=== PATIENT | male | born 1945 | race Caucasian/White ===

== ENCOUNTER 2023-06-15 02:33 | Inpatient (IN) | payer OTHER ==
[2023-06-15] MEDS ORDERED: VANCOMYCIN 1 GRAM (PRE-DOCKED) 1,000 MG/250 ML BAG IVPB ONE (03:11)
[2023-06-15] MEDS ORDERED: methylPREDNISolone NA SUCC 125 MG/2 ML VIAL ONE (03:20)
[2023-06-15] MEDS: LACTATED RINGERS SOLUTION 1000 ML INFUS.BAG IV ONE (03:21)
[2023-06-15] MEDS: VANCOMYCIN 1,000 MG in DEXTROSE 5%-WATER - 250 ML IVPB ONE (03:21)
[2023-06-15] MEDS: methylPREDNISolone NA SUCC 125 MG/2 ML VIAL IVPUSH ONE (03:31)
[2023-06-15] MEDS: ALBUTEROL SO4 2.5/IPRATROPIUM 0.5 INH SOL 3 ML VIAL.NEB. NEB SCH ×2 (03:31→20:55)
[2023-06-15 03:36] LABS: HEMATOCRIT 19.9 % (35.4-49); MCH 29.7 pg (25.7-33.7); MCHC 32.3 g/dl (32.0-35.9); MEAN CELL VOLUME 91.9 fl (80-96); MEAN PLT VOLUME 7.9 fl (7.5-11.1); PLATELET COUNT 694 10^3/uL (134-434); RBC 2.16 M/mm3 (4.00-5.60); RDW 16.3 % (11.9-15.9)
[2023-06-15 03:40] LABS: INR 1.54 (0.83-1.09); PROTHROMBIN TIME (PATIENT) 17.8 SEC (9.7-13.0)
[2023-06-15 03:43] LABS: ACTIVATED PTT 31.5 SECONDS (25.2-36.5)
[2023-06-15 03:49] LABS: POTASSIUM 4.4 mmol/L (3.5-5.1)
[2023-06-15 03:50] LABS: HEMOGLOBIN 6.4 GM/dL (11.7-16.9); WHITE BLOOD COUNT 31.5 K/mm3 (4.0-10.0)
[2023-06-15 03:51] LABS: ALBUMIN 1.3 g/dl (3.4-5.0); CALCIUM 8.8 mg/dL (8.5-10.1)
[2023-06-15 03:52] LABS: BLOOD UREA NITROGEN 27.6 mg/dL (7-18)
[2023-06-15 03:52] LABS: EPI CELLS 23 /uL (0-25.1); HYALINE CASTS 2 /uL (0-3.1); URINE APPEARANCE CLEAR; URINE BACTERIA 6 /uL (0-1359); URINE BILIRUBIN NEGATIVE (NEGATIVE); URINE COLOR YELLOW; URINE GLUCOSE (UA) NEGATIVE (NEGATIVE); URINE KETONE NEGATIVE (NEGATIVE); URINE LEUK ESTERASE NEGATIVE (NEGATIVE); URINE NITRITE NEGATIVE (NEGATIVE); URINE PROTEIN 2+ (NEGATIVE); URINE RBC 158 /uL (0-23.9); URINE WBC 18 /uL (0-25.8)
[2023-06-15 03:55] LABS: CREATININE 0.6 mg/dL (0.55-1.3)
[2023-06-15 03:56] LABS: BILIRUBIN,TOTAL 0.3 mg/dL (0.2-1); TOT PROT 6.5 g/dl (6.4-8.2)
[2023-06-15 04:02] LABS: VENOUS BASE EXCESS 5.9 mmol/L (-2-2); VENOUS O2 SATURATION 98.7 % (70-80); VENOUS PCO2 37.1 mmHg (38-52); VENOUS PH 7.515 (7.310-7.410)
[2023-06-15 04:05] LABS: LACTIC ACID 2.2 mmol/L (0.4-2.0)
[2023-06-15] MEDS ORDERED: PIPERACILLIN/TAZOB 4.5 GM 4.5 GM/100 ML BAG IVPB ONE (04:34)
[2023-06-15 04:42] LABS: ANISOCYTOSIS 1+; MACROCYTOSIS 1+; TOXIC GRANULATION 1+
[2023-06-15] MEDS: PIPERACILLIN/TAZOB 4.5 GM 4.5 GM in DEXTROSE 5%-WATER 100 ML IVPB ONE (04:42)
[2023-06-15 04:51] LABS: PLATELET ESTIMATE INCREASED
[2023-06-15 05:55] LABS: LACTIC ACID 2.7 mmol/L (0.4-2.0)
[2023-06-15] MEDS: SODIUM CHLORIDE 0.9% 500 ML INFUS.BAG IV ONE (06:14)
[2023-06-15] MEDS ORDERED: CEFEPIME 1 GM/100 ML BAG IVPB ONE (10:24)
[2023-06-15] MEDS: CEFEPIME 1 GM in DEXTROSE 5%-WATER 100 ML IVPB ONE (10:40)
[2023-06-15] MEDS: LACTATED RINGERS SOLUTION 1,000 ML/1,000 ML INFUS.BAG IV SCH (10:40)
[2023-06-15] MEDS ORDERED: ALBUTEROL SO4 0.083% IH SOL 2.5 MG/3 ML VIAL.NEB. NEB ONE (12:07)
[2023-06-15] MEDS ORDERED: methylPREDNISolone NA SUCC 40 MG/1 ML VIAL ONE (12:08)
[2023-06-15] MEDS: methylPREDNISolone NA SUCC 40 MG/1 ML VIAL IVPUSH SCH (12:12)
[2023-06-15] MEDS: ALBUTEROL SO4 0.083% IH SOL 2.5 MG/3 ML VIAL.NEB. NEB SCH (12:19)
[2023-06-15 12:54] LABS: LACTIC ACID 2.7 mmol/L (0.4-2.0)
[2023-06-15] MEDS ORDERED: ALBUTEROL SO4 0.083% IH SOL 2.5 MG/3 ML VIAL.NEB. NEB PRN (13:22)
[2023-06-15] MEDS ORDERED: PIPERACILLIN/TAZOB 3.375 GM 3.375 GM in DEXTROSE 5%-WATER - 50 ML IVPB SCH (18:00)
[2023-06-15] MEDS: PIPERACILLIN/TAZOB 3.375 GM 3.375 GM in DEXTROSE 5%-WATER - 50 ML IVPB SCH ×2 (18:24→19:00)
[2023-06-16] MEDS: VANCOMYCIN/WATER FOR INJ (PEG) 1,000 MG/200 ML BAG IVPB ONE (05:00)
[2023-06-16] MEDS ORDERED: INSULIN (NOVOLOG) ASPART 100 UNITS/ML 10ML VIAL ONE (07:05)
[2023-06-16 07:45] LABS: HEMATOCRIT 22.7 % (35.4-49); HEMOGLOBIN 7.3 GM/dL (11.7-16.9); MCH 29.7 pg (25.7-33.7); MCHC 32.2 g/dl (32.0-35.9); MEAN CELL VOLUME 92.2 fl (80-96); MEAN PLT VOLUME 7.9 fl (7.5-11.1); PLATELET COUNT 770 10^3/uL (134-434); RBC 2.46 M/mm3 (4.00-5.60)
[2023-06-16 07:53] LABS: WHITE BLOOD COUNT 33.1 K/mm3 (4.0-10.0)
[2023-06-16 08:05] LABS: BLOOD UREA NITROGEN 27.5 mg/dL (7-18); CALCIUM 9.4 mg/dL (8.5-10.1)
[2023-06-16 08:06] LABS: MAGNESIUM 2.3 mg/dL (1.8-2.4)
[2023-06-16 08:07] LABS: ALBUMIN 1.3 g/dl (3.4-5.0)
[2023-06-16 08:08] LABS: CREATININE 0.5 mg/dL (0.55-1.3)
[2023-06-16 08:10] LABS: BILIRUBIN,TOTAL 0.3 mg/dL (0.2-1); TOT PROT 6.1 g/dl (6.4-8.2)
[2023-06-16] MEDS ORDERED: VANCOMYCIN 1,000 MG in DEXTROSE 5%-WATER - 250 ML IVPB SCH (10:15)
[2023-06-16] MEDS: METOPROLOL TARTRATE 25 MG TABLET (FP) PO SCH ×2 (11:39→22:23)
[2023-06-16] MEDS: AMINO ACIDS/PROTEIN HYDROLYS 30 ML LIQUID.PKT PO SCH (15:23)
[2023-06-16] MEDS: METOPROLOL TARTRATE 5 MG/5 ML VIAL IVPUSH ONE (15:23)
[2023-06-16 16:13] VITALS: BMI 14.0
[2023-06-16] MEDS ORDERED: METOPROLOL TARTRATE 25 MG TABLET (FP) PO SCH (22:00)
[2023-06-16] MEDS: ATORVASTATIN CA 40 MG TABLET (FP) GT SCH (22:23)
[2023-06-17 07:46] LABS: HEMATOCRIT 23.8 % (35.4-49); HEMOGLOBIN 7.7 GM/dL (11.7-16.9); MCH 29.7 pg (25.7-33.7); MCHC 32.4 g/dl (32.0-35.9); MEAN CELL VOLUME 91.6 fl (80-96); PLATELET COUNT 882 10^3/uL (134-434); RDW 16.6 % (11.9-15.9); WHITE BLOOD COUNT 22.7 K/mm3 (4.0-10.0)
[2023-06-17 08:08] LABS: POTASSIUM 4.5 mmol/L (3.5-5.1)
[2023-06-17 08:25] LABS: ALBUMIN 1.4 g/dl (3.4-5.0); CALCIUM 9.4 mg/dL (8.5-10.1)
[2023-06-17 08:26] LABS: BLOOD UREA NITROGEN 37.6 mg/dL (7-18); MAGNESIUM 2.5 mg/dL (1.8-2.4)
[2023-06-17 08:28] LABS: CREATININE 0.6 mg/dL (0.55-1.3)
[2023-06-17 08:29] LABS: PHOSPHOROUS 2.9 mg/dL (2.5-4.9)
[2023-06-17 08:30] LABS: BILIRUBIN,TOTAL 0.3 mg/dL (0.2-1); TOT PROT 6.1 g/dl (6.4-8.2)
[2023-06-17] MEDS: SCOPOLAMINE HYDROBROMIDE 1 PATCH PATCH.TD72 TD SCH (12:39)
[2023-06-17] MEDS: PANTOPRAZOLE SODIUM 40 MG VIAL IVPUSH SCH (17:17)
[2023-06-17] MEDS: methylPREDNISolone NA SUCC 40 MG/1 ML VIAL IVPUSH SCH (21:25)
[2023-06-17] MEDS: MIRTAZAPINE 15 MG TABLET (FP) PO SCH (21:25)
[2023-06-18 06:46] LABS: HEMATOCRIT 26.8 % (35.4-49); HEMOGLOBIN 8.7 GM/dL (11.7-16.9); MCH 30.3 pg (25.7-33.7); MCHC 32.3 g/dl (32.0-35.9); MEAN CELL VOLUME 93.7 fl (80-96); MEAN PLT VOLUME 7.8 fl (7.5-11.1); PLATELET COUNT 991 10^3/uL (134-434); RBC 2.86 M/mm3 (4.00-5.60); RDW 16.1 % (11.9-15.9); WHITE BLOOD COUNT 15.3 K/mm3 (4.0-10.0)
[2023-06-18 07:00] LABS: POTASSIUM 4.8 mmol/L (3.5-5.1)
[2023-06-18 07:07] LABS: CALCIUM 9.5 mg/dL (8.5-10.1)
[2023-06-18 07:08] LABS: ALBUMIN 1.6 g/dl (3.4-5.0); BLOOD UREA NITROGEN 33.2 mg/dL (7-18); MAGNESIUM 2.5 mg/dL (1.8-2.4)
[2023-06-18 07:11] LABS: CREATININE 0.6 mg/dL (0.55-1.3); PHOSPHOROUS 2.9 mg/dL (2.5-4.9)
[2023-06-18 07:12] LABS: BILIRUBIN,TOTAL 0.6 mg/dL (0.2-1); TOT PROT 6.4 g/dl (6.4-8.2)
[2023-06-18] MEDS: methylPREDNISolone NA SUCC 40 MG/1 ML VIAL IVPUSH SCH (10:30)
[2023-06-18] MEDS: METOPROLOL TARTRATE 5 MG/5 ML VIAL IVPUSH PRN (15:52)
[2023-06-18] MEDS: ENOXAPARIN NA (PORCINE) 40 MG/0.4 ML DISP.SYRIN SQ SCH (15:53)
[2023-06-18] MEDS: ACETAMINOPHEN 1000 MG/100 ML BAG IVPB SCH (17:06)
[2023-06-19 07:23] LABS: HEMOGLOBIN 9.4 GM/dL (11.7-16.9); MCH 29.8 pg (25.7-33.7); MCHC 32.3 g/dl (32.0-35.9); MEAN CELL VOLUME 92.4 fl (80-96); MEAN PLT VOLUME 7.6 fl (7.5-11.1); RBC 3.14 M/mm3 (4.00-5.60); RDW 16.4 % (11.9-15.9)
[2023-06-19 07:32] LABS: PLATELET COUNT 1200 10^3/uL (134-434)
[2023-06-19 07:37] LABS: WHITE BLOOD COUNT 34.6 K/mm3 (4.0-10.0)
[2023-06-19 07:43] LABS: POTASSIUM 4.7 mmol/L (3.5-5.1)
[2023-06-19 07:46] LABS: ALBUMIN 1.6 g/dl (3.4-5.0); BLOOD UREA NITROGEN 28.3 mg/dL (7-18)
[2023-06-19 07:51] LABS: BILIRUBIN,TOTAL 0.4 mg/dL (0.2-1); TOT PROT 6.7 g/dl (6.4-8.2)
[2023-06-19 07:54] LABS: CREATININE 0.6 mg/dL (0.55-1.3)
[2023-06-19 07:55] LABS: CALCIUM 9.4 mg/dL (8.5-10.1)
[2023-06-19] MEDS: ASCORBIC ACID 500 MG/5 ML UNIT DOSE CUP GT SCH (09:01)
[2023-06-19 09:44] LABS: ANISOCYTOSIS 0; MACROCYTOSIS 0
[2023-06-19] MEDS: methylPREDNISolone NA SUCC 40 MG/1 ML VIAL IVPUSH SCH (13:14)
[2023-06-19] MEDS: LORazepam 2 MG/ML SDV VIAL IVPUSH ONE (18:01)
[2023-06-19] MEDS: POLYETHYLENE GLYCOL (HEALTHYLAX) 3350 17 GM PACKET PO SCH (20:30)
[2023-06-19] MEDS: VANCOMYCIN/WATER FOR INJ (PEG) 1,000 MG/200 ML BAG IVPB ONE (20:30)
[2023-06-20] MEDS: MEROPENEM 1 GM in DEXTROSE 5%-WATER 100 ML IVPB SCH (01:03)
[2023-06-20 06:42] LABS: HEMATOCRIT 26.7 % (35.4-49); HEMOGLOBIN 8.7 GM/dL (11.7-16.9); MCH 30.4 pg (25.7-33.7); MCHC 32.6 g/dl (32.0-35.9); MEAN CELL VOLUME 93.4 fl (80-96); MEAN PLT VOLUME 7.8 fl (7.5-11.1); PLATELET COUNT 1088 10^3/uL (134-434); RBC 2.86 M/mm3 (4.00-5.60); RDW 15.7 % (11.9-15.9)
[2023-06-20 06:47] LABS: WHITE BLOOD COUNT 40.3 K/mm3 (4.0-10.0)
[2023-06-20 07:01] LABS: POTASSIUM 5.1 mmol/L (3.5-5.1)
[2023-06-20 07:04] LABS: ALBUMIN 1.6 g/dl (3.4-5.0); BLOOD UREA NITROGEN 31.9 mg/dL (7-18); CALCIUM 9.6 mg/dL (8.5-10.1); MAGNESIUM 2.5 mg/dL (1.8-2.4)
[2023-06-20 07:07] LABS: CREATININE 0.5 mg/dL (0.55-1.3)
[2023-06-20 07:09] LABS: BILIRUBIN,TOTAL 0.4 mg/dL (0.2-1); TOT PROT 6.5 g/dl (6.4-8.2)
[2023-06-20] MEDS: DOCUSATE NA 100 MG/10 ML UNIT-DOSE CUPS PO PRN (09:37)
[2023-06-20 09:44] LABS: ANISOCYTOSIS 0; MACROCYTOSIS 0
[2023-06-20 14:16] LABS: EPI CELLS 9 /uL (0-25.1); HYALINE CASTS 0 /uL (0-3.1); PH,URINE 5.5 (5.0-8.0); URINE APPEARANCE CLEAR; URINE BACTERIA 13 /uL (0-1359); URINE BILIRUBIN NEGATIVE (NEGATIVE); URINE COLOR YELLOW; URINE GLUCOSE (UA) TRACE (NEGATIVE); URINE KETONE NEGATIVE (NEGATIVE); URINE LEUK ESTERASE NEGATIVE (NEGATIVE); URINE NITRITE NEGATIVE (NEGATIVE); URINE PROTEIN 1+ (NEGATIVE)
[2023-06-20 15:13] LABS: URINE RBC 223 /uL (0-23.9); URINE WBC 60 /uL (0-25.8); YEAST PRESENT (NEGATIVE)
[2023-06-21 06:59] LABS: HEMATOCRIT 26.2 % (35.4-49); HEMOGLOBIN 8.4 GM/dL (11.7-16.9); MCH 29.9 pg (25.7-33.7); MEAN CELL VOLUME 93.5 fl (80-96); MEAN PLT VOLUME 7.9 fl (7.5-11.1); PLATELET COUNT 931 10^3/uL (134-434); RDW 16.1 % (11.9-15.9); WHITE BLOOD COUNT 26.6 K/mm3 (4.0-10.0)
[2023-06-21 07:15] LABS: CALCIUM 9.4 mg/dL (8.5-10.1)
[2023-06-21 07:16] LABS: ALBUMIN 1.6 g/dl (3.4-5.0); BLOOD UREA NITROGEN 33.6 mg/dL (7-18)
[2023-06-21 07:19] LABS: CREATININE 0.5 mg/dL (0.55-1.3)
[2023-06-21 07:21] LABS: TOT PROT 6.2 g/dl (6.4-8.2)
[2023-06-21 07:23] LABS: BILIRUBIN,TOTAL 0.3 mg/dL (0.2-1)
[2023-06-21] MEDS: VANCOMYCIN/WATER FOR INJ (PEG) 1,000 MG/200 ML BAG IVPB SCH (16:53)
[2023-06-21 19:03] LABS: ARTERIAL BLD GAS O2 SATURATION 98.7 % (95-98); ARTERIAL BLOOD GAS BASE EXCESS 8.6 mmol/L (-2-2); ARTERIAL BLOOD GAS PO2 119.7 mmHg (80-100); ARTERIAL BLOOD GAS pH 7.533 (7.350-7.450)
[2023-06-21 19:09] LABS: ALLENS TEST POSITIVE
[2023-06-21 19:10] LABS: VENT MODE V-AC; VENT RATE RR20
[2023-06-22 06:48] LABS: HEMATOCRIT 28.4 % (35.4-49); HEMOGLOBIN 9.2 GM/dL (11.7-16.9); MCH 29.9 pg (25.7-33.7); MCHC 32.5 g/dl (32.0-35.9); PLATELET COUNT 1094 10^3/uL (134-434); RBC 3.09 M/mm3 (4.00-5.60); RDW 16.2 % (11.9-15.9)
[2023-06-22 07:31] LABS: POTASSIUM 5.4 mmol/L (3.5-5.1)
[2023-06-22 07:37] LABS: CALCIUM 9.6 mg/dL (8.5-10.1)
[2023-06-22 07:38] LABS: ALBUMIN 1.7 g/dl (3.4-5.0); BLOOD UREA NITROGEN 31.6 mg/dL (7-18)
[2023-06-22 07:41] LABS: CREATININE 0.5 mg/dL (0.55-1.3); PHOSPHOROUS 3.2 mg/dL (2.5-4.9)
[2023-06-22 07:42] LABS: BILIRUBIN,TOTAL 0.4 mg/dL (0.2-1)
[2023-06-22 07:43] LABS: TOT PROT 6.6 g/dl (6.4-8.2)
[2023-06-22] MEDS: AMINO ACIDS/PROTEIN HYDROLYS 30 ML LIQUID.PKT PO SCH (09:17)
[2023-06-22] MEDS: DOCUSATE NA 100 MG/10 ML UNIT-DOSE CUPS PO SCH (09:17)
[2023-06-22] MEDS: SODIUM ZIRCONIUM CYCLOSILICATE (LOKELMA) 5 GM PACKET PO SCH (14:01)
[2023-06-22] MEDS: ALBUTEROL SO4 2.5/IPRATROPIUM 0.5 INH SOL 3 ML VIAL.NEB. NEB SCH (15:29)
[2023-06-22] MEDS: LACTATED RINGERS SOLUTION 1,000 ML/1,000 ML INFUS.BAG IV SCH (18:16)
[2023-06-23 07:03] LABS: HEMATOCRIT 26.7 % (35.4-49); HEMOGLOBIN 8.7 GM/dL (11.7-16.9); MCH 29.5 pg (25.7-33.7); MCHC 32.4 g/dl (32.0-35.9); MEAN CELL VOLUME 91.1 fl (80-96); MEAN PLT VOLUME 7.8 fl (7.5-11.1); PLATELET COUNT 1001 10^3/uL (134-434); RBC 2.94 M/mm3 (4.00-5.60); RDW 15.9 % (11.9-15.9); WHITE BLOOD COUNT 16.3 K/mm3 (4.0-10.0)
[2023-06-23 07:33] LABS: ALBUMIN 1.6 g/dl (3.4-5.0); CALCIUM 9.5 mg/dL (8.5-10.1)
[2023-06-23 07:36] LABS: BLOOD UREA NITROGEN 29.6 mg/dL (7-18)
[2023-06-23 07:37] LABS: BILIRUBIN,TOTAL 0.4 mg/dL (0.2-1)
[2023-06-23 07:40] LABS: CREATININE 0.4 mg/dL (0.55-1.3)
[2023-06-23 07:41] LABS: TOT PROT 6.2 g/dl (6.4-8.2)
[2023-06-23] MEDS ORDERED: ARTIFICIAL TEARS OPHTHALMIC DROPS OU PRN (13:00)
[2023-06-23] MEDS: methylPREDNISolone NA SUCC 40 MG/1 ML VIAL IVPUSH SCH (17:23)
[2023-06-24 06:37] LABS: HEMATOCRIT 28.3 % (35.4-49); HEMOGLOBIN 9.1 GM/dL (11.7-16.9); MCH 29.3 pg (25.7-33.7); MCHC 32.2 g/dl (32.0-35.9); MEAN PLT VOLUME 7.8 fl (7.5-11.1); PLATELET COUNT 1061 10^3/uL (134-434); RBC 3.11 M/mm3 (4.00-5.60); RDW 15.9 % (11.9-15.9); WHITE BLOOD COUNT 19.4 K/mm3 (4.0-10.0)
[2023-06-24 06:53] LABS: POTASSIUM 4.4 mmol/L (3.5-5.1)
[2023-06-24 06:57] LABS: ALBUMIN 1.7 g/dl (3.4-5.0); BLOOD UREA NITROGEN 26.1 mg/dL (7-18); CALCIUM 9.1 mg/dL (8.5-10.1); MAGNESIUM 2.3 mg/dL (1.8-2.4)
[2023-06-24 07:00] LABS: CREATININE 0.5 mg/dL (0.55-1.3); PHOSPHOROUS 2.2 mg/dL (2.5-4.9)
[2023-06-24 07:02] LABS: BILIRUBIN,TOTAL 0.4 mg/dL (0.2-1); TOT PROT 6.3 g/dl (6.4-8.2)
[2023-06-24] MEDS: BISACODYL 10 MG SUPP.RECT PR ONE (16:20)
[2023-06-24] MEDS: LACTATED RINGERS SOLUTION 1,000 ML/1,000 ML INFUS.BAG IV SCH (18:38)
[2023-06-24] MEDS: DAPTOMYCIN 200 MG in SODIUM CHLORIDE 50 ML IVPB SCH (21:59)
[2023-06-25 07:22] LABS: HEMATOCRIT 26.9 % (35.4-49); HEMOGLOBIN 8.8 GM/dL (11.7-16.9); MCH 29.8 pg (25.7-33.7); MCHC 32.6 g/dl (32.0-35.9); MEAN CELL VOLUME 91.4 fl (80-96); MEAN PLT VOLUME 7.9 fl (7.5-11.1); PLATELET COUNT 899 10^3/uL (134-434); RBC 2.94 M/mm3 (4.00-5.60); RDW 15.7 % (11.9-15.9); WHITE BLOOD COUNT 21.5 K/mm3 (4.0-10.0)
[2023-06-25 07:40] LABS: POTASSIUM 4.5 mmol/L (3.5-5.1)
[2023-06-25 07:44] LABS: ALBUMIN 1.6 g/dl (3.4-5.0); BLOOD UREA NITROGEN 24.4 mg/dL (7-18); CALCIUM 8.8 mg/dL (8.5-10.1); MAGNESIUM 2.1 mg/dL (1.8-2.4)
[2023-06-25 07:47] LABS: CREATININE 0.4 mg/dL (0.55-1.3); PHOSPHOROUS 2.1 mg/dL (2.5-4.9)
[2023-06-25 07:49] LABS: BILIRUBIN,TOTAL 0.5 mg/dL (0.2-1)
[2023-06-25] MEDS: methylPREDNISolone NA SUCC 40 MG/1 ML VIAL IVPUSH SCH (09:12)
[2023-06-26 07:44] LABS: HEMATOCRIT 27.7 % (35.4-49); HEMOGLOBIN 8.9 GM/dL (11.7-16.9); MCH 29.7 pg (25.7-33.7); MCHC 32.3 g/dl (32.0-35.9); MEAN PLT VOLUME 8.2 fl (7.5-11.1); PLATELET COUNT 915 10^3/uL (134-434); RBC 3.01 M/mm3 (4.00-5.60); RDW 16.1 % (11.9-15.9); WHITE BLOOD COUNT 25.4 K/mm3 (4.0-10.0)
[2023-06-26 08:02] LABS: POTASSIUM 4.5 mmol/L (3.5-5.1)
[2023-06-26 08:04] LABS: CALCIUM 9.1 mg/dL (8.5-10.1)
[2023-06-26 08:05] LABS: ALBUMIN 1.6 g/dl (3.4-5.0); BLOOD UREA NITROGEN 28.5 mg/dL (7-18)
[2023-06-26 08:08] LABS: CREATININE 0.4 mg/dL (0.55-1.3); PHOSPHOROUS 2.2 mg/dL (2.5-4.9)
[2023-06-26 08:10] LABS: BILIRUBIN,TOTAL 0.3 mg/dL (0.2-1); TOT PROT 6.2 g/dl (6.4-8.2)
[2023-06-26] MEDS: methylPREDNISolone NA SUCC 40 MG/1 ML VIAL IVPUSH SCH (09:24)
[2023-06-26 10:39] LABS: ANISOCYTOSIS 0; MACROCYTOSIS 0
[2023-06-26 10:51] LABS: NEUT % 21.7 % (42.8-82.8)
[2023-06-27 07:35] LABS: HEMATOCRIT 25.7 % (35.4-49); HEMOGLOBIN 8.4 GM/dL (11.7-16.9); MCH 29.7 pg (25.7-33.7); MCHC 32.5 g/dl (32.0-35.9); MEAN CELL VOLUME 91.5 fl (80-96); MEAN PLT VOLUME 8.5 fl (7.5-11.1); PLATELET COUNT 851 10^3/uL (134-434); RBC 2.81 M/mm3 (4.00-5.60); RDW 16.8 % (11.9-15.9)
[2023-06-27 07:55] LABS: POTASSIUM 4.9 mmol/L (3.5-5.1)
[2023-06-27 08:00] LABS: ALBUMIN 1.6 g/dl (3.4-5.0)
[2023-06-27 08:02] LABS: CALCIUM 8.8 mg/dL (8.5-10.1)
[2023-06-27 08:03] LABS: BLOOD UREA NITROGEN 25.7 mg/dL (7-18); CREATININE 0.4 mg/dL (0.55-1.3)
[2023-06-27 08:04] LABS: BILIRUBIN,TOTAL 0.3 mg/dL (0.2-1); PHOSPHOROUS 2.3 mg/dL (2.5-4.9)
[2023-06-27 08:05] LABS: TOT PROT 5.9 g/dl (6.4-8.2)
[2023-06-27 08:33] LABS: ANISOCYTOSIS 2+; MACROCYTOSIS 0
[2023-06-28 07:13] LABS: HEMATOCRIT 24.3 % (35.4-49); HEMOGLOBIN 7.8 GM/dL (11.7-16.9); MCH 29.2 pg (25.7-33.7); MCHC 32.1 g/dl (32.0-35.9); MEAN CELL VOLUME 90.9 fl (80-96); MEAN PLT VOLUME 8.6 fl (7.5-11.1); PLATELET COUNT 864 10^3/uL (134-434); RBC 2.67 M/mm3 (4.00-5.60); RDW 16.6 % (11.9-15.9); WHITE BLOOD COUNT 20.9 K/mm3 (4.0-10.0)
[2023-06-28 07:30] LABS: POTASSIUM 4.7 mmol/L (3.5-5.1)
[2023-06-28 07:40] LABS: CALCIUM 9.4 mg/dL (8.5-10.1)
[2023-06-28 07:41] LABS: ALBUMIN 1.6 g/dl (3.4-5.0); BLOOD UREA NITROGEN 22.4 mg/dL (7-18)
[2023-06-28 07:44] LABS: CREATININE 0.4 mg/dL (0.55-1.3); PHOSPHOROUS 2.5 mg/dL (2.5-4.9)
[2023-06-28 07:46] LABS: BILIRUBIN,TOTAL 0.3 mg/dL (0.2-1)
[2023-06-28 08:56] LABS: ANISOCYTOSIS 1+; MACROCYTOSIS 0
[2023-06-28] MEDS: LACTATED RINGERS SOLUTION 1,000 ML/1,000 ML INFUS.BAG IV SCH (15:44)
[2023-06-28 18:07] LABS: IG A QN SERUM. 352 mg/dL (61-437)
[2023-06-29 07:13] LABS: HEMATOCRIT 23.1 % (35.4-49); HEMOGLOBIN 7.4 GM/dL (11.7-16.9); MCH 29.8 pg (25.7-33.7); MCHC 32.1 g/dl (32.0-35.9); MEAN CELL VOLUME 92.7 fl (80-96); MEAN PLT VOLUME 8.3 fl (7.5-11.1); PLATELET COUNT 896 10^3/uL (134-434); RDW 16.6 % (11.9-15.9); WHITE BLOOD COUNT 18.3 K/mm3 (4.0-10.0)
[2023-06-29 07:47] LABS: POTASSIUM 4.9 mmol/L (3.5-5.1)
[2023-06-29 08:23] LABS: ALBUMIN 1.6 g/dl (3.4-5.0); BLOOD UREA NITROGEN 20.7 mg/dL (7-18); MAGNESIUM 2.4 mg/dL (1.8-2.4)
[2023-06-29 08:26] LABS: CREATININE 0.3 mg/dL (0.55-1.3); PHOSPHOROUS 3.2 mg/dL (2.5-4.9)
[2023-06-29 08:27] LABS: TOT PROT 5.8 g/dl (6.4-8.2)
[2023-06-29 08:29] LABS: BILIRUBIN,TOTAL 0.2 mg/dL (0.2-1)
[2023-06-29] MEDS ORDERED: methylPREDNISolone NA SUCC 40 MG/1 ML VIAL IVPUSH SCH (10:00)
[2023-06-29] MEDS: predniSONE 20 MG TABLET (UD) PO SCH (10:10)
[2023-06-29] MEDS: FAMOTIDINE 20 MG/2.5 ML ORAL LIQUID PEG SCH (10:11)
[2023-06-29 17:08] LABS: FREE KAPPA,SERUM 65.2 mg/L (3.3-19.4)
[2023-06-30] MEDS ORDERED: INSULIN (LEVEMIR) 100 UNITS/ML UNITS SQ ONE (06:52)
[2023-06-30 07:33] LABS: POTASSIUM 5.1 mmol/L (3.5-5.1)
[2023-06-30 07:48] LABS: ALBUMIN 1.7 g/dl (3.4-5.0)
[2023-06-30 07:49] LABS: BLOOD UREA NITROGEN 21.1 mg/dL (7-18); CALCIUM 8.9 mg/dL (8.5-10.1); MAGNESIUM 1.8 mg/dL (1.8-2.4)
[2023-06-30 07:52] LABS: CREATININE 0.4 mg/dL (0.55-1.3); PHOSPHOROUS 2.8 mg/dL (2.5-4.9)
[2023-06-30 07:53] LABS: BILIRUBIN,TOTAL 0.3 mg/dL (0.2-1); TOT PROT 6.3 g/dl (6.4-8.2)
[2023-06-30] MEDS ORDERED: RAPID SEQUENCE INTUBATION KIT NR ONE (07:59)
[2023-06-30 08:12] LABS: BASO % 0.6 % (0-2.0); EOS % 0.7 % (0-4.5); HEMATOCRIT 23.4 % (35.4-49); HEMOGLOBIN 7.9 GM/dL (11.7-16.9); MCHC 33.9 g/dl (32.0-35.9); MEAN CELL VOLUME 91.4 fl (80-96); MEAN PLT VOLUME 8.3 fl (7.5-11.1); MONO % 3.9 % (3.8-10.2); NEUT % 83.8 % (42.8-82.8); PLATELET COUNT 1030 10^3/uL (134-434); RBC 2.56 M/mm3 (4.00-5.60); RDW 16.9 % (11.9-15.9); WHITE BLOOD COUNT 20.1 K/mm3 (4.0-10.0)
[2023-06-30 09:51] LABS: ANISOCYTOSIS 1+; MACROCYTOSIS 0
[2023-06-30] MEDS ORDERED: POLYETHYLENE GLYCOL (HEALTHYLAX) 3350 17 GM PACKET PO PRN (18:33)
[2023-07-01 07:30] LABS: MCH 29.5 pg (25.7-33.7); MCHC 32.2 g/dl (32.0-35.9); MEAN CELL VOLUME 91.7 fl (80-96); PLATELET COUNT 1026 10^3/uL (134-434); RBC 2.72 M/mm3 (4.00-5.60); WHITE BLOOD COUNT 27.8 K/mm3 (4.0-10.0)
[2023-07-01 07:57] LABS: POTASSIUM 4.7 mmol/L (3.5-5.1)
[2023-07-01 08:02] LABS: ALBUMIN 1.8 g/dl (3.4-5.0); BLOOD UREA NITROGEN 26.4 mg/dL (7-18); CALCIUM 8.8 mg/dL (8.5-10.1)
[2023-07-01 08:04] LABS: PHOSPHOROUS 3.4 mg/dL (2.5-4.9)
[2023-07-01 08:05] LABS: CREATININE 0.4 mg/dL (0.55-1.3)
[2023-07-01 08:06] LABS: BILIRUBIN,TOTAL 0.5 mg/dL (0.2-1); TOT PROT 6.3 g/dl (6.4-8.2)
[2023-07-01] MEDS: LACTATED RINGERS SOLUTION 1,000 ML/1,000 ML INFUS.BAG IV SCH (09:42)
[2023-07-01] MEDS: ALBUTEROL SO4 2.5/IPRATROPIUM 0.5 INH SOL 3 ML VIAL.NEB. NEB SCH (15:50)
[2023-07-01] MEDS ORDERED: ARTIFICIAL TEARS OPHTHALMIC DROPS OU PRN (15:51)
[2023-07-01] MEDS: PIPERACILLIN/TAZOB 3.375 GM 3.375 GM in DEXTROSE 5%-WATER - 50 ML IVPB SCH (17:49)
[2023-07-01] MEDS: MIRTAZAPINE 15 MG TABLET (FP) PO SCH (22:03)
[2023-07-01] MEDS: METOPROLOL TARTRATE 25 MG TABLET (FP) PO SCH (22:03)
[2023-07-02] MEDS: ACETAMINOPHEN 1000 MG/100 ML BAG IVPB PRN (00:20)
[2023-07-02] MEDS: METOPROLOL TARTRATE 5 MG/5 ML VIAL IVPUSH PRN (01:53)
[2023-07-02] MEDS: AMINO ACIDS/PROTEIN HYDROLYS 30 ML LIQUID.PKT PO SCH (09:11)
[2023-07-02] MEDS: ENOXAPARIN NA (PORCINE) 40 MG/0.4 ML DISP.SYRIN SQ SCH (09:11)
[2023-07-02] MEDS: predniSONE 10 MG TABLET (UD) PO SCH (09:12)
[2023-07-02] MEDS: ASCORBIC ACID 500 MG/5 ML UNIT DOSE CUP GT SCH (09:12)
[2023-07-02 09:22] LABS: POTASSIUM 4.5 mmol/L (3.5-5.1)
[2023-07-02 09:24] LABS: ALBUMIN 1.6 g/dl (3.4-5.0); BLOOD UREA NITROGEN 29.7 mg/dL (7-18); CALCIUM 8.7 mg/dL (8.5-10.1); MAGNESIUM 2.3 mg/dL (1.8-2.4)
[2023-07-02 09:27] LABS: CREATININE 0.4 mg/dL (0.55-1.3); PHOSPHOROUS 2.9 mg/dL (2.5-4.9)
[2023-07-02 09:29] LABS: BILIRUBIN,TOTAL 0.5 mg/dL (0.2-1); TOT PROT 5.9 g/dl (6.4-8.2)
[2023-07-02 09:49] LABS: HEMATOCRIT 24.5 % (35.4-49); HEMOGLOBIN 7.7 GM/dL (11.7-16.9); MCH 29.2 pg (25.7-33.7); MCHC 31.4 g/dl (32.0-35.9); MEAN CELL VOLUME 93.1 fl (80-96); MEAN PLT VOLUME 8.2 fl (7.5-11.1); PLATELET COUNT 863 10^3/uL (134-434); RBC 2.63 M/mm3 (4.00-5.60); RDW 17.1 % (11.9-15.9); WHITE BLOOD COUNT 25.2 K/mm3 (4.0-10.0)
[2023-07-02] MEDS: FAMOTIDINE 40 MG/5 ML ORAL SUSPENSION PEG SCH (11:50)
[2023-07-02] MEDS: SCOPOLAMINE HYDROBROMIDE 1 PATCH PATCH.TD72 TD SCH (11:51)
[2023-07-02] MEDS: DEXTROSE 5%-NORMAL SALINE 1,000 ML IV SCH (14:51)
[2023-07-02] MEDS: methylPREDNISolone NA SUCC 40 MG/1 ML VIAL IVPUSH SCH (14:52)
[2023-07-03] MEDS ORDERED: ARTIFICIAL TEARS OPHTHALMIC DROPS OU PRN (05:19)
[2023-07-03] MEDS ORDERED: METOPROLOL TARTRATE 5 MG/5 ML VIAL IVPUSH PRN (05:19)
[2023-07-03 08:10] LABS: POTASSIUM 4.6 mmol/L (3.5-5.1)
[2023-07-03 08:14] LABS: CALCIUM 8.8 mg/dL (8.5-10.1)
[2023-07-03 08:15] LABS: ALBUMIN 1.5 g/dl (3.4-5.0); BLOOD UREA NITROGEN 24.4 mg/dL (7-18); MAGNESIUM 2.4 mg/dL (1.8-2.4)
[2023-07-03 08:18] LABS: CREATININE 0.4 mg/dL (0.55-1.3); PHOSPHOROUS 2.6 mg/dL (2.5-4.9)
[2023-07-03 08:19] LABS: BILIRUBIN,TOTAL 0.3 mg/dL (0.2-1); TOT PROT 5.9 g/dl (6.4-8.2)
[2023-07-03] MEDS: ALBUTEROL SO4 2.5/IPRATROPIUM 0.5 INH SOL 3 ML VIAL.NEB. NEB SCH (08:45)
[2023-07-03 08:50] LABS: MCHC 32.1 g/dl (32.0-35.9); MEAN CELL VOLUME 93.5 fl (80-96); PLATELET COUNT 702 10^3/uL (134-434); RBC 2.24 M/mm3 (4.00-5.60); RDW 17.3 % (11.9-15.9); WHITE BLOOD COUNT 15.2 K/mm3 (4.0-10.0)
[2023-07-03 09:07] LABS: HEMOGLOBIN 6.7 GM/dL (11.7-16.9)
[2023-07-03] MEDS: ASCORBIC ACID 500 MG/5 ML UNIT DOSE CUP GT SCH (09:21)
[2023-07-03] MEDS: AMINO ACIDS/PROTEIN HYDROLYS 30 ML LIQUID.PKT PO SCH (09:21)
[2023-07-03] MEDS: METOPROLOL TARTRATE 25 MG TABLET (FP) PO SCH (09:21)
[2023-07-03] MEDS: FAMOTIDINE 20 MG/2.5 ML ORAL LIQUID PEG SCH (09:22)
[2023-07-03] MEDS: ENOXAPARIN NA (PORCINE) 40 MG/0.4 ML DISP.SYRIN SQ SCH (09:22)
[2023-07-03] MEDS: PIPERACILLIN/TAZOB 3.375 GM 3.375 GM in DEXTROSE 5%-WATER - 50 ML IVPB SCH (09:22)
[2023-07-03] MEDS: MIRTAZAPINE 15 MG TABLET (FP) PO SCH (21:51)
[2023-07-04 07:39] LABS: HEMATOCRIT 27.8 % (35.4-49); HEMOGLOBIN 9.1 GM/dL (11.7-16.9); MCH 29.7 pg (25.7-33.7); MCHC 32.7 g/dl (32.0-35.9); PLATELET COUNT 793 10^3/uL (134-434); RBC 3.05 M/mm3 (4.00-5.60); RDW 16.7 % (11.9-15.9)
[2023-07-04 07:57] LABS: POTASSIUM 4.6 mmol/L (3.5-5.1)
[2023-07-04 08:01] LABS: CALCIUM 9.3 mg/dL (8.5-10.1)
[2023-07-04 08:02] LABS: ALBUMIN 1.8 g/dl (3.4-5.0); BLOOD UREA NITROGEN 31.2 mg/dL (7-18); MAGNESIUM 2.2 mg/dL (1.8-2.4)
[2023-07-04 08:05] LABS: CREATININE 0.6 mg/dL (0.55-1.3); PHOSPHOROUS 3.4 mg/dL (2.5-4.9)
[2023-07-04 08:06] LABS: BILIRUBIN,TOTAL 0.4 mg/dL (0.2-1); TOT PROT 6.2 g/dl (6.4-8.2)
[2023-07-04 10:14] LABS: ANISOCYTOSIS 0; MACROCYTOSIS 0
[2023-07-04] MEDS: ACETAMINOPHEN 1000 MG/100 ML BAG IVPB PRN (12:43)
[2023-07-04] MEDS: methylPREDNISolone NA SUCC 40 MG/1 ML VIAL IVPUSH SCH (21:28)
[2023-07-05 07:23] LABS: HEMATOCRIT 30.1 % (35.4-49); MEAN CELL VOLUME 90.9 fl (80-96); MEAN PLT VOLUME 7.9 fl (7.5-11.1); PLATELET COUNT 892 10^3/uL (134-434); RBC 3.31 M/mm3 (4.00-5.60); RDW 16.2 % (11.9-15.9); WHITE BLOOD COUNT 15.3 K/mm3 (4.0-10.0)
[2023-07-05 07:42] LABS: POTASSIUM 5.3 mmol/L (3.5-5.1)
[2023-07-05 07:48] LABS: CALCIUM 9.7 mg/dL (8.5-10.1)
[2023-07-05 07:49] LABS: ALBUMIN 1.9 g/dl (3.4-5.0); MAGNESIUM 2.3 mg/dL (1.8-2.4)
[2023-07-05 07:51] LABS: PHOSPHOROUS 3.9 mg/dL (2.5-4.9)
[2023-07-05 07:52] LABS: CREATININE 0.5 mg/dL (0.55-1.3); TOT PROT 6.8 g/dl (6.4-8.2)
[2023-07-05 07:53] LABS: BILIRUBIN,TOTAL 0.5 mg/dL (0.2-1)
[2023-07-05] MEDS: POLYETHYLENE GLYCOL (HEALTHYLAX) 3350 17 GM PACKET PO PRN (08:59)
[2023-07-05] MEDS: SCOPOLAMINE HYDROBROMIDE 1 PATCH PATCH.TD72 TD SCH (13:07)
[2023-07-05] MEDS: SODIUM ZIRCONIUM CYCLOSILICATE (LOKELMA) 5 GM PACKET GT ONE (17:30)
[2023-07-06 12:59] LABS: HEMATOCRIT 30.5 % (35.4-49); HEMOGLOBIN 10.2 GM/dL (11.7-16.9); MCH 30.5 pg (25.7-33.7); MCHC 33.6 g/dl (32.0-35.9); MEAN CELL VOLUME 90.8 fl (80-96); MEAN PLT VOLUME 7.9 fl (7.5-11.1); PLATELET COUNT 919 10^3/uL (134-434); RBC 3.36 M/mm3 (4.00-5.60); RDW 16.2 % (11.9-15.9); WHITE BLOOD COUNT 16.2 K/mm3 (4.0-10.0)
[2023-07-06 13:50] LABS: ALBUMIN 1.9 g/dl (3.4-5.0); BLOOD UREA NITROGEN 28.8 mg/dL (7-18)
[2023-07-06 13:53] LABS: CREATININE 0.6 mg/dL (0.55-1.3); PHOSPHOROUS 4.1 mg/dL (2.5-4.9)
[2023-07-06 13:54] LABS: TOT PROT 6.4 g/dl (6.4-8.2)
[2023-07-06 13:55] LABS: BILIRUBIN,TOTAL 0.4 mg/dL (0.2-1)
[2023-07-06 13:58] LABS: CALCIUM 9.3 mg/dL (8.5-10.1); MAGNESIUM 2.3 mg/dL (1.8-2.4)
[2023-07-06] MEDS: QUEtiapine FUMARATE 25 MG TABLET GT SCH ×2 (15:25→21:22)
[2023-07-07 06:39] LABS: HEMATOCRIT 29.1 % (35.4-49); HEMOGLOBIN 9.7 GM/dL (11.7-16.9); MCH 30.3 pg (25.7-33.7); MCHC 33.3 g/dl (32.0-35.9); MEAN CELL VOLUME 91.1 fl (80-96); MEAN PLT VOLUME 7.8 fl (7.5-11.1); PLATELET COUNT 837 10^3/uL (134-434); RDW 16.1 % (11.9-15.9); WHITE BLOOD COUNT 14.2 K/mm3 (4.0-10.0)
[2023-07-07 07:24] LABS: POTASSIUM 4.6 mmol/L (3.5-5.1)
[2023-07-07 07:30] LABS: BLOOD UREA NITROGEN 26.9 mg/dL (7-18); CALCIUM 9.2 mg/dL (8.5-10.1)
[2023-07-07 07:32] LABS: ALBUMIN 1.9 g/dl (3.4-5.0)
[2023-07-07 07:34] LABS: CREATININE 0.5 mg/dL (0.55-1.3); PHOSPHOROUS 2.8 mg/dL (2.5-4.9)
[2023-07-07 07:36] LABS: BILIRUBIN,TOTAL 0.5 mg/dL (0.2-1); TOT PROT 6.1 g/dl (6.4-8.2)
[2023-07-07] MEDS: methylPREDNISolone NA SUCC 40 MG/1 ML VIAL IVPUSH SCH (09:13)
[2023-07-07] MEDS: QUEtiapine FUMARATE 25 MG TABLET PO ONE (12:04)
[2023-07-07] MEDS: QUEtiapine FUMARATE 25 MG TABLET GT SCH (22:00)
[2023-07-08] MEDS: ALPRAZolam 1 MG TABLET GT PRN (01:56)
[2023-07-08 07:07] LABS: HEMATOCRIT 33.2 % (35.4-49); HEMOGLOBIN 10.9 GM/dL (11.7-16.9); MCH 30.2 pg (25.7-33.7); MCHC 32.9 g/dl (32.0-35.9); MEAN CELL VOLUME 91.9 fl (80-96); MEAN PLT VOLUME 7.8 fl (7.5-11.1); PLATELET COUNT 731 10^3/uL (134-434); RBC 3.61 M/mm3 (4.00-5.60); RDW 16.5 % (11.9-15.9); WHITE BLOOD COUNT 11.3 K/mm3 (4.0-10.0)
[2023-07-08 07:33] LABS: POTASSIUM 4.5 mmol/L (3.5-5.1)
[2023-07-08 07:35] LABS: BLOOD UREA NITROGEN 24.1 mg/dL (7-18); CALCIUM 9.5 mg/dL (8.5-10.1); MAGNESIUM 2.3 mg/dL (1.8-2.4)
[2023-07-08 07:38] LABS: CREATININE 0.5 mg/dL (0.55-1.3); PHOSPHOROUS 2.9 mg/dL (2.5-4.9)
[2023-07-08 07:39] LABS: BILIRUBIN,TOTAL 0.5 mg/dL (0.2-1); TOT PROT 6.9 g/dl (6.4-8.2)
[2023-07-09 07:24] LABS: BASO % 0.3 % (0-2.0); EOS % 0.7 % (0-4.5); HEMATOCRIT 31.4 % (35.4-49); LYMPH % 12.9 % (8-40); MCH 29.5 pg (25.7-33.7); MEAN PLT VOLUME 8.2 fl (7.5-11.1); MONO % 4.3 % (3.8-10.2); NEUT % 81.8 % (42.8-82.8); PLATELET COUNT 802 10^3/uL (134-434); RBC 3.41 M/mm3 (4.00-5.60); RDW 16.4 % (11.9-15.9); WHITE BLOOD COUNT 13.6 K/mm3 (4.0-10.0)
[2023-07-09 07:39] LABS: POTASSIUM 5.1 mmol/L (3.5-5.1)
[2023-07-09 07:44] LABS: ALBUMIN 1.9 g/dl (3.4-5.0); CALCIUM 9.5 mg/dL (8.5-10.1)
[2023-07-09 07:49] LABS: BILIRUBIN,TOTAL 0.4 mg/dL (0.2-1); TOT PROT 6.4 g/dl (6.4-8.2)
[2023-07-09 07:58] LABS: BLOOD UREA NITROGEN 24.9 mg/dL (7-18); CREATININE 0.4 mg/dL (0.55-1.3)
[2023-07-10] MEDS: METOPROLOL TARTRATE 25 MG TABLET (FP) PO SCH (10:34)
[2023-07-11 05:24] VITALS: RESP 22
[2023-07-11 06:16] VITALS: PULSE 110; TEMP 98.3
[2023-07-11 07:42] LABS: BASO % 0.3 % (0-2.0); EOS % 0.4 % (0-4.5); HEMATOCRIT 29.8 % (35.4-49); LYMPH % 13.5 % (8-40); MCH 30.4 pg (25.7-33.7); MCHC 33.4 g/dl (32.0-35.9); MEAN PLT VOLUME 8.6 fl (7.5-11.1); MONO % 8.3 % (3.8-10.2); NEUT % 77.5 % (42.8-82.8); PLATELET COUNT 666 10^3/uL (134-434); RBC 3.28 M/mm3 (4.00-5.60); RDW 16.3 % (11.9-15.9); WHITE BLOOD COUNT 11.8 K/mm3 (4.0-10.0)
[2023-07-11] MEDS ORDERED: METOPROLOL TARTRATE 25 MG TABLET (FP) PO SCH (07:45)
[2023-07-11] MEDS ORDERED: POLYETHYLENE GLYCOL (HEALTHYLAX) 3350 17 GM PACKET GT PRN (07:46)
[2023-07-11] MEDS ORDERED: MIRTAZAPINE 15 MG TABLET (FP) GT SCH (07:46)
[2023-07-11 07:53] LABS: CALCIUM 9.3 mg/dL (8.5-10.1)
[2023-07-11 07:54] LABS: BLOOD UREA NITROGEN 32.6 mg/dL (7-18)
[2023-07-11 07:57] LABS: CREATININE 0.5 mg/dL (0.55-1.3)
[2023-07-11] MEDS: AMINO ACIDS/PROTEIN HYDROLYS 30 ML LIQUID.PKT GT SCH (09:24)
[2023-07-11] MEDS: METOPROLOL TARTRATE 25 MG TABLET (FP) GT SCH (09:25)
[2023-07-11] MEDS: predniSONE 20 MG TABLET (UD) GT SCH (09:25)
[2023-07-11 10:48] VITALS: BP 94/70
== END 2023-07-11 12:20 | DRG 870 ==
LOC: JER 02:33 → JERBED 09:29 → J2W 16:01 → J5S 07-01 15:37 → J2W 07-03 05:24
PROVIDERS: ADMIT Internal Medicine; ATTEND Internal Medicine
PROC: 5A1955Z Respiratory Ventilation, Greater than 96 Consecutive Hours (ICD-10-PCS; principal; 2023-06-15)
PROC: 30233N1 Transfusion of Nonautologous Red Blood Cells into Peripheral Vein, Percutaneous Approach (ICD-10-PCS; 2023-06-15)
DX: A41.89 Other specified sepsis (principal); E43 Unspecified severe protein-calorie malnutrition; I60.8 Other nontraumatic subarachnoid hemorrhage; J96.21 Acute and chronic respiratory failure with hypoxia; R64 Cachexia; Z68.1 Body mass index [BMI] 19.9 or less, adult; J98.11 Atelectasis; Z43.1 Encounter for attention to gastrostomy; J44.0 Chronic obstructive pulmonary disease with (acute) lower respiratory infection; J95.851 Ventilator associated pneumonia; E87.20 Acidosis, unspecified; E87.1 Hypo-osmolality and hyponatremia; J44.1 Chronic obstructive pulmonary disease with (acute) exacerbation; I24.89 Other forms of acute ischemic heart disease; R62.7 Adult failure to thrive; D75.839 Thrombocytosis, unspecified; E78.5 Hyperlipidemia, unspecified; R65.20 Severe sepsis without septic shock; D63.8 Anemia in other chronic diseases classified elsewhere; R45.1 Restlessness and agitation; K59.00 Constipation, unspecified; K21.9 Gastro-esophageal reflux disease without esophagitis; I95.9 Hypotension, unspecified; H10.11 Acute atopic conjunctivitis, right eye; L89.150 Pressure ulcer of sacral region, unstageable; Z93.0 Tracheostomy status; S05.11XA Contusion of eyeball and orbital tissues, right eye, initial encounter; X58.XXXA Exposure to other specified factors, initial encounter; Y93.9 Activity, unspecified; Y92.9 Unspecified place or not applicable; Y99.9 Unspecified external cause status
CPT/HCPCS: 0241U-QW; 36415; 36430; 36600; 70450-TC; 70490-TC; 71045-TC-FY; 71275-TC; 80048; 80053; 81003; 82550; 82607; 82728; 82747; 82784; 82803; 82962; 83540; 83550; 83605; 83735; 83883; 84100; 84155; 84165; 84484; 85014; 85025; 85027; 85610; 85730; 86850; 86900; 86901; 86922; 87040; 87070; 87077; 87086; 87186; 87205; 87324; 87449; 87635; 87899; 93005; 93010; 93306-TC; 94002; 94640; 99291; E0186; G0480; J0131; J0878; P9058; Q9967

== ENCOUNTER 2023-08-10 11:21 | Inpatient (IN) | payer OTHER ==
[2023-08-10 11:44] VITALS: BMI 13.2
[2023-08-10 12:41] LABS: POTASSIUM 5.3 mmol/L (3.5-5.1)
[2023-08-10 12:43] LABS: ALBUMIN 1.7 g/dl (3.4-5.0); BLOOD UREA NITROGEN 23.8 mg/dL (7-18); CALCIUM 9.3 mg/dL (8.5-10.1)
[2023-08-10 12:46] LABS: CREATININE 0.5 mg/dL (0.55-1.3)
[2023-08-10 12:48] LABS: BILIRUBIN,TOTAL 0.2 mg/dL (0.2-1); TOT PROT 7.3 g/dl (6.4-8.2)
[2023-08-10] MEDS: SODIUM CHLORIDE 1,000 ML IV STA (13:22)
[2023-08-10 13:28] LABS: BASO % 0.8 % (0-2.0); EOS % 0.9 % (0-4.5); HEMATOCRIT 20.8 % (35.4-49); LYMPH % 10.9 % (8-40); MCH 28.2 pg (25.7-33.7); MCHC 31.6 g/dl (32.0-35.9); MEAN CELL VOLUME 89.3 fl (80-96); MEAN PLT VOLUME 7.7 fl (7.5-11.1); MONO % 6.5 % (3.8-10.2); NEUT % 80.9 % (42.8-82.8); PLATELET COUNT 669 10^3/uL (134-434); RBC 2.33 M/mm3 (4.00-5.60); RDW 17.2 % (11.9-15.9); WHITE BLOOD COUNT 12.5 K/mm3 (4.0-10.0)
[2023-08-10 13:32] LABS: HEMOGLOBIN 6.6 GM/dL (11.7-16.9)
[2023-08-10 14:28] LABS: INR 1.31 (0.83-1.09); PROTHROMBIN TIME (PATIENT) 15.1 SEC (9.7-13.0)
[2023-08-10] MEDS ORDERED: ERYTHROMYCIN 0.5% OPHTHALMIC OINTMENT 3.5 GM TUBE ONE (15:10)
[2023-08-10] MEDS: ERYTHROMYCIN 0.5% OPHTHALMIC OINTMENT 3.5 GM TUBE OD ONE (15:11)
[2023-08-10] MEDS ORDERED: PANTOPRAZOLE SODIUM 40 MG/100 ML BAG IVPB ONE (15:43)
[2023-08-10] MEDS ORDERED: PIPERACILLIN/TAZOB 3.375 GM 3.375 GM/50 ML BAG IVPB ONE (15:43)
[2023-08-10] MEDS: PIPERACILLIN/TAZOB 3.375 GM 3.375 GM in DEXTROSE 5%-WATER - 50 ML IVPB ONE (15:49)
[2023-08-10] MEDS: PANTOPRAZOLE SODIUM 40 MG VIAL IVPUSH SCH (15:49)
[2023-08-10 20:15] LABS: HEMATOCRIT 22.4 % (35.4-49); MCH 28.2 pg (25.7-33.7); MCHC 31.1 g/dl (32.0-35.9); MEAN CELL VOLUME 90.6 fl (80-96); MEAN PLT VOLUME 7.9 fl (7.5-11.1); PLATELET COUNT 798 10^3/uL (134-434); RBC 2.47 M/mm3 (4.00-5.60); RDW 16.6 % (11.9-15.9); WHITE BLOOD COUNT 14.1 K/mm3 (4.0-10.0)
[2023-08-10 20:36] LABS: POTASSIUM 4.6 mmol/L (3.5-5.1)
[2023-08-10 20:38] LABS: CALCIUM 8.9 mg/dL (8.5-10.1)
[2023-08-10 20:39] LABS: ALBUMIN 1.6 g/dl (3.4-5.0); BLOOD UREA NITROGEN 22.1 mg/dL (7-18)
[2023-08-10 20:42] LABS: CREATININE 0.5 mg/dL (0.55-1.3)
[2023-08-10 20:43] LABS: BILIRUBIN,TOTAL 0.4 mg/dL (0.2-1)
[2023-08-10] MEDS ORDERED: METOPROLOL TARTRATE 25 MG TABLET (FP) ONE (22:46)
[2023-08-10] MEDS ORDERED: PANTOPRAZOLE SODIUM 40 MG VIAL ONE (22:46)
[2023-08-10] MEDS: SODIUM CHLORIDE 1,000 ML IV SCH (22:51)
[2023-08-10] MEDS: METOPROLOL TARTRATE 25 MG TABLET (FP) GT SCH (23:43)
[2023-08-11] MEDS ORDERED: POLYETHYLENE GLYCOL (HEALTHYLAX) 3350 17 GM PACKET GT PRN (07:42)
[2023-08-11] MEDS: ALBUTEROL SO4 2.5/IPRATROPIUM 0.5 INH SOL 3 ML VIAL.NEB. NEB SCH (08:40)
[2023-08-11 08:50] LABS: BASO % 1.1 % (0-2.0); EOS % 1.2 % (0-4.5); HEMATOCRIT 20.1 % (35.4-49); LYMPH % 6.8 % (8-40); MCH 28.6 pg (25.7-33.7); MCHC 31.5 g/dl (32.0-35.9); MEAN CELL VOLUME 90.6 fl (80-96); MEAN PLT VOLUME 8.1 fl (7.5-11.1); NEUT % 85.9 % (42.8-82.8); PLATELET COUNT 703 10^3/uL (134-434); RBC 2.22 M/mm3 (4.00-5.60); RDW 17.1 % (11.9-15.9); WHITE BLOOD COUNT 14.5 K/mm3 (4.0-10.0)
[2023-08-11 08:51] LABS: POTASSIUM 4.3 mmol/L (3.5-5.1)
[2023-08-11 08:55] LABS: ALBUMIN 1.5 g/dl (3.4-5.0); CALCIUM 9.3 mg/dL (8.5-10.1); MAGNESIUM 2.2 mg/dL (1.8-2.4)
[2023-08-11 08:56] LABS: BLOOD UREA NITROGEN 23.7 mg/dL (7-18)
[2023-08-11 08:58] LABS: CREATININE 0.5 mg/dL (0.55-1.3); PHOSPHOROUS 3.9 mg/dL (2.5-4.9)
[2023-08-11 09:00] LABS: BILIRUBIN,TOTAL 0.5 mg/dL (0.2-1); TOT PROT 6.5 g/dl (6.4-8.2)
[2023-08-11 09:01] LABS: HEMOGLOBIN 6.3 GM/dL (11.7-16.9)
[2023-08-11] MEDS ORDERED: METOPROLOL TARTRATE 25 MG TABLET (FP) ONE (09:38)
[2023-08-11] MEDS ORDERED: ALBUTEROL SO4 2.5/IPRATROPIUM 0.5 INH SOL 3 ML VIAL.NEB. NEB ONE (09:38)
[2023-08-11] MEDS ORDERED: PANTOPRAZOLE SODIUM 40 MG VIAL ONE (09:40)
[2023-08-11] MEDS: MOXIFLOXACIN HCL 0.5% OPHTHALMIC 3 ML BOTTLE OD SCH (10:00)
[2023-08-11] MEDS: PIPERACILLIN/TAZOB 3.375 GM 3.375 GM in DEXTROSE 5%-WATER - 50 ML IVPB SCH (10:30)
[2023-08-11] MEDS ORDERED: PIPERACILLIN/TAZOB 3.375 GM 3.375 GM/50 ML BAG IVPB ONE (10:42)
[2023-08-11] MEDS: QUEtiapine FUMARATE 25 MG TABLET GT SCH (10:44)
[2023-08-11] MEDS: MIRTAZAPINE 15 MG TABLET (FP) GT SCH (22:43)
[2023-08-12] MEDS: PANTOPRAZOLE SODIUM 40 MG VIAL IVPUSH SCH (09:50)
[2023-08-12 11:00] LABS: BASO % 1.2 % (0-2.0); EOS % 1.8 % (0-4.5); HEMATOCRIT 21.5 % (35.4-49); LYMPH % 9.3 % (8-40); MCH 28.9 pg (25.7-33.7); MCHC 32.4 g/dl (32.0-35.9); MEAN CELL VOLUME 89.2 fl (80-96); MEAN PLT VOLUME 8.2 fl (7.5-11.1); MONO % 5.7 % (3.8-10.2); PLATELET COUNT 618 10^3/uL (134-434); RBC 2.41 M/mm3 (4.00-5.60); RDW 16.5 % (11.9-15.9); WHITE BLOOD COUNT 9.1 K/mm3 (4.0-10.0)
[2023-08-12 11:26] LABS: POTASSIUM 3.9 mmol/L (3.5-5.1)
[2023-08-12 11:28] LABS: ALBUMIN 1.4 g/dl (3.4-5.0); CALCIUM 8.5 mg/dL (8.5-10.1)
[2023-08-12 11:29] LABS: MAGNESIUM 2.2 mg/dL (1.8-2.4)
[2023-08-12 11:32] LABS: CREATININE 0.5 mg/dL (0.55-1.3); PHOSPHOROUS 3.1 mg/dL (2.5-4.9)
[2023-08-12 11:33] LABS: BILIRUBIN,TOTAL 0.3 mg/dL (0.2-1); TOT PROT 6.4 g/dl (6.4-8.2)
[2023-08-12] MEDS ORDERED: ALBUTEROL SO4 2.5/IPRATROPIUM 0.5 INH SOL 3 ML VIAL.NEB. NEB PRN (16:26)
[2023-08-12] MEDS: SODIUM CHLORIDE 500 ML IV STA (16:51)
[2023-08-12] MEDS ORDERED: LEVALBUTEROL HCL 0.63 MG/3 ML VIAL.NEB. IH PRN (17:56)
[2023-08-12] MEDS ORDERED: IPRATROPIUM BR 0.02% 0.5 MG/2.5 ML VIAL.NEB. NEB PRN (17:56)
[2023-08-12] MEDS: ACETAMINOPHEN 650 MG/20.3 ML ORAL SOLUTION (CUPS) GT PRN (20:53)
[2023-08-12 21:02] LABS: HEMATOCRIT 28.2 % (35.4-49); HEMOGLOBIN 9.3 GM/dL (11.7-16.9); MCH 29.7 pg (25.7-33.7); MCHC 32.9 g/dl (32.0-35.9); MEAN CELL VOLUME 90.3 fl (80-96); MEAN PLT VOLUME 7.9 fl (7.5-11.1); PLATELET COUNT 656 10^3/uL (134-434); RBC 3.12 M/mm3 (4.00-5.60); RDW 16.1 % (11.9-15.9); WHITE BLOOD COUNT 13.9 K/mm3 (4.0-10.0)
[2023-08-12] MEDS: methylPREDNISolone NA SUCC 40 MG/1 ML VIAL IVPUSH SCH (21:11)
[2023-08-13 06:37] LABS: HEMOGLOBIN 8.7 GM/dL (11.7-16.9); MCH 30.5 pg (25.7-33.7); MCHC 33.5 g/dl (32.0-35.9); MEAN CELL VOLUME 91.3 fl (80-96); MEAN PLT VOLUME 8.3 fl (7.5-11.1); PLATELET COUNT 580 10^3/uL (134-434); RBC 2.85 M/mm3 (4.00-5.60); RDW 16.2 % (11.9-15.9); WHITE BLOOD COUNT 13.4 K/mm3 (4.0-10.0)
[2023-08-13 07:11] LABS: POTASSIUM 4.7 mmol/L (3.5-5.1)
[2023-08-13 07:17] LABS: BLOOD UREA NITROGEN 18.3 mg/dL (7-18); CALCIUM 8.4 mg/dL (8.5-10.1)
[2023-08-13 07:21] LABS: CREATININE 0.5 mg/dL (0.55-1.3)
[2023-08-13] MEDS: SODIUM HYPOCHLORITE 0.5% 473 ML- BULK BOTTLE TP SCH (09:10)
[2023-08-13] MEDS: VANCOMYCIN/WATER FOR INJ (PEG) 750 MG/150 ML BAG IVPB SCH (15:02)
[2023-08-13 15:45] LABS: EPI CELLS 32 /uL (0-25.1); HYALINE CASTS 8 /uL (0-3.1); PH,URINE 5.5 (5.0-8.0); URINE APPEARANCE Error; URINE BACTERIA 47 /uL (0-1359); URINE BILIRUBIN NEGATIVE (NEGATIVE); URINE COLOR YELLOW; URINE GLUCOSE (UA) NEGATIVE (NEGATIVE); URINE KETONE TRACE (NEGATIVE); URINE LEUK ESTERASE NEGATIVE (NEGATIVE); URINE NITRITE NEGATIVE (NEGATIVE); URINE PROTEIN 1+ (NEGATIVE); URINE WBC 13 /uL (0-25.8)
[2023-08-13 16:21] LABS: URINE RBC 119 /uL (0-23.9)
[2023-08-13 16:24] LABS: URINE CRYSTALS PRESENT /hpf
[2023-08-14 07:37] LABS: HEMATOCRIT 27.1 % (35.4-49); HEMOGLOBIN 8.7 GM/dL (11.7-16.9); MCH 29.8 pg (25.7-33.7); MCHC 32.2 g/dl (32.0-35.9); MEAN CELL VOLUME 92.4 fl (80-96); MEAN PLT VOLUME 8.3 fl (7.5-11.1); PLATELET COUNT 627 10^3/uL (134-434); RBC 2.93 M/mm3 (4.00-5.60); RDW 16.2 % (11.9-15.9); WHITE BLOOD COUNT 14.6 K/mm3 (4.0-10.0)
[2023-08-14 08:13] LABS: POTASSIUM 5.1 mmol/L (3.5-5.1)
[2023-08-14 08:21] LABS: ALBUMIN 1.5 g/dl (3.4-5.0); CALCIUM 8.5 mg/dL (8.5-10.1)
[2023-08-14 08:22] LABS: BLOOD UREA NITROGEN 20.7 mg/dL (7-18)
[2023-08-14 08:25] LABS: CREATININE 0.5 mg/dL (0.55-1.3)
[2023-08-14 08:26] LABS: BILIRUBIN,TOTAL 0.2 mg/dL (0.2-1); TOT PROT 6.2 g/dl (6.4-8.2)
[2023-08-14] MEDS ORDERED: METOPROLOL TARTRATE 25 MG TABLET (FP) GT SCH (09:50)
[2023-08-14 10:53] LABS: ANISOCYTOSIS 0; MACROCYTOSIS 0
[2023-08-14] MEDS: methylPREDNISolone NA SUCC 40 MG/1 ML VIAL IVPUSH SCH (21:33)
[2023-08-14] MEDS: METOPROLOL TARTRATE 25 MG TABLET (FP) GT SCH (21:33)
[2023-08-15 07:34] LABS: BASO % 0.2 % (0-2.0); HEMATOCRIT 27.2 % (35.4-49); HEMOGLOBIN 8.7 GM/dL (11.7-16.9); LYMPH % 6.6 % (8-40); MCH 29.3 pg (25.7-33.7); MEAN CELL VOLUME 91.6 fl (80-96); MEAN PLT VOLUME 8.3 fl (7.5-11.1); MONO % 5.1 % (3.8-10.2); NEUT % 88.1 % (42.8-82.8); PLATELET COUNT 660 10^3/uL (134-434); RBC 2.97 M/mm3 (4.00-5.60); RDW 16.2 % (11.9-15.9); WHITE BLOOD COUNT 11.6 K/mm3 (4.0-10.0)
[2023-08-15 08:01] LABS: POTASSIUM 4.6 mmol/L (3.5-5.1)
[2023-08-15 08:03] LABS: ALBUMIN 1.4 g/dl (3.4-5.0); BLOOD UREA NITROGEN 22.1 mg/dL (7-18); CALCIUM 8.5 mg/dL (8.5-10.1)
[2023-08-15 08:06] LABS: CREATININE 0.3 mg/dL (0.55-1.3)
[2023-08-15 08:08] LABS: BILIRUBIN,TOTAL 0.3 mg/dL (0.2-1); TOT PROT 5.8 g/dl (6.4-8.2)
[2023-08-15] MEDS ORDERED: POLYETHYLENE GLYCOL (HEALTHYLAX) 3350 17 GM PACKET GT PRN (19:34)
[2023-08-15] MEDS: ACETAMINOPHEN 650 MG/20.3 ML ORAL SOLUTION (CUPS) GT PRN (21:19)
[2023-08-15] MEDS: MIRTAZAPINE 15 MG TABLET (FP) GT SCH (21:20)
[2023-08-15] MEDS: QUEtiapine FUMARATE 25 MG TABLET GT SCH (21:20)
[2023-08-15] MEDS: MOXIFLOXACIN HCL 0.5% OPHTHALMIC 3 ML BOTTLE OD SCH (21:21)
[2023-08-16] MEDS: PIPERACILLIN/TAZOB 3.375 GM 3.375 GM in DEXTROSE 5%-WATER - 50 ML IVPB SCH (01:05)
[2023-08-16 07:37] LABS: BASO % 0.3 % (0-2.0); HEMATOCRIT 31.4 % (35.4-49); HEMOGLOBIN 10.1 GM/dL (11.7-16.9); LYMPH % 6.8 % (8-40); MCH 29.2 pg (25.7-33.7); MCHC 32.1 g/dl (32.0-35.9); MEAN PLT VOLUME 8.2 fl (7.5-11.1); MONO % 3.4 % (3.8-10.2); NEUT % 89.5 % (42.8-82.8); PLATELET COUNT 840 10^3/uL (134-434); RBC 3.45 M/mm3 (4.00-5.60); RDW 16.7 % (11.9-15.9); WHITE BLOOD COUNT 11.1 K/mm3 (4.0-10.0)
[2023-08-16 07:56] LABS: POTASSIUM 4.8 mmol/L (3.5-5.1)
[2023-08-16 08:08] LABS: ALBUMIN 1.6 g/dl (3.4-5.0)
[2023-08-16 08:09] LABS: BLOOD UREA NITROGEN 18.9 mg/dL (7-18)
[2023-08-16 08:12] LABS: CREATININE 0.4 mg/dL (0.55-1.3)
[2023-08-16 08:13] LABS: BILIRUBIN,TOTAL 0.4 mg/dL (0.2-1); TOT PROT 6.3 g/dl (6.4-8.2)
[2023-08-16] MEDS: PANTOPRAZOLE SODIUM 40 MG VIAL IVPUSH SCH (09:35)
[2023-08-16] MEDS: ASCORBIC ACID 500 MG/5 ML UNIT DOSE CUP GT SCH (09:35)
[2023-08-16] MEDS: SODIUM HYPOCHLORITE 0.5% 473 ML- BULK BOTTLE TP SCH (09:36)
[2023-08-16 17:35] LABS: MAGNESIUM 2.2 mg/dL (1.8-2.4)
[2023-08-16 17:39] LABS: PHOSPHOROUS 2.8 mg/dL (2.5-4.9)
[2023-08-17 07:10] LABS: HEMATOCRIT 32.3 % (35.4-49); HEMOGLOBIN 10.3 GM/dL (11.7-16.9); MCHC 31.9 g/dl (32.0-35.9); MEAN CELL VOLUME 90.9 fl (80-96); MEAN PLT VOLUME 8.1 fl (7.5-11.1); PLATELET COUNT 851 10^3/uL (134-434); RBC 3.55 M/mm3 (4.00-5.60); RDW 16.7 % (11.9-15.9); WHITE BLOOD COUNT 14.1 K/mm3 (4.0-10.0)
[2023-08-17 07:31] LABS: POTASSIUM 4.4 mmol/L (3.5-5.1)
[2023-08-17 07:36] LABS: CALCIUM 8.7 mg/dL (8.5-10.1)
[2023-08-17 07:38] LABS: ALBUMIN 1.7 g/dl (3.4-5.0); BLOOD UREA NITROGEN 18.8 mg/dL (7-18)
[2023-08-17 07:41] LABS: CREATININE 0.4 mg/dL (0.55-1.3)
[2023-08-17 07:43] LABS: BILIRUBIN,TOTAL 1.4 mg/dL (0.2-1); TOT PROT 6.1 g/dl (6.4-8.2)
[2023-08-17] MEDS: methylPREDNISolone NA SUCC 40 MG/1 ML VIAL IVPUSH SCH (10:08)
[2023-08-17 12:11] VITALS: BP 147/68; PULSE 93; RESP 23; TEMP 98.5
== END 2023-08-17 12:45 | DRG 870 ==
LOC: JER 11:21 → JERBED 16:28 → J5S 08-11 18:43 → J2W 08-12 20:19
PROVIDERS: ADMIT Internal Medicine; ATTEND Internal Medicine
PROC: 5A1955Z Respiratory Ventilation, Greater than 96 Consecutive Hours (ICD-10-PCS; principal; 2023-08-10)
PROC: 30233N1 Transfusion of Nonautologous Red Blood Cells into Peripheral Vein, Percutaneous Approach (ICD-10-PCS; 2023-08-11)
DX: A41.89 Other specified sepsis (principal); L89.153 Pressure ulcer of sacral region, stage 3; L89.313 Pressure ulcer of right buttock, stage 3; E43 Unspecified severe protein-calorie malnutrition; J18.9 Pneumonia, unspecified organism; E87.1 Hypo-osmolality and hyponatremia; L03.213 Periorbital cellulitis; J96.11 Chronic respiratory failure with hypoxia; Z68.1 Body mass index [BMI] 19.9 or less, adult; D62 Acute posthemorrhagic anemia; E87.5 Hyperkalemia; H01.00A Unspecified blepharitis right eye, upper and lower eyelids; N31.9 Neuromuscular dysfunction of bladder, unspecified; D50.9 Iron deficiency anemia, unspecified; R00.0 Tachycardia, unspecified; R33.9 Retention of urine, unspecified; D72.829 Elevated white blood cell count, unspecified; J44.9 Chronic obstructive pulmonary disease, unspecified; K21.9 Gastro-esophageal reflux disease without esophagitis; Z93.1 Gastrostomy status; Z93.0 Tracheostomy status; Z86.73 Personal history of transient ischemic attack (TIA), and cerebral infarction without residual deficits
CPT/HCPCS: 0241U-QW; 36415; 36430; 70481-TC; 71045-TC-FY; 80048; 80053; 81003; 82272; 83735; 84100; 85025; 85027; 85610; 86850; 86900; 86901; 86922; 87040; 87070; 87086; 87186; 87205; 87635; 93005; 93010; 94002; 94640; 99285-25; P9058; Q9967

== ENCOUNTER 2023-08-22 12:41 | Inpatient (IN) | payer OTHER ==
[2023-08-22 14:28] LABS: HEMATOCRIT 29.1 % (35.4-49); HEMOGLOBIN 9.1 GM/dL (11.7-16.9); MCH 28.8 pg (25.7-33.7); MCHC 31.2 g/dl (32.0-35.9); MEAN CELL VOLUME 92.3 fl (80-96); MEAN PLT VOLUME 9.4 fl (7.5-11.1); PLATELET COUNT 607 10^3/uL (134-434); RBC 3.16 M/mm3 (4.00-5.60); RDW 17.9 % (11.9-15.9); WHITE BLOOD COUNT 19.4 K/mm3 (4.0-10.0)
[2023-08-22 14:36] LABS: INR 1.36 (0.83-1.09); PROTHROMBIN TIME (PATIENT) 15.7 SEC (9.7-13.0)
[2023-08-22 14:37] LABS: VENOUS BASE EXCESS 8.6 mmol/L (-2-2); VENOUS O2 SATURATION 95.2 % (70-80); VENOUS PCO2 45.7 mmHg (38-52); VENOUS PH 7.476 (7.310-7.410)
[2023-08-22] MEDS: ALBUTEROL SO4 2.5/IPRATROPIUM 0.5 INH SOL 3 ML VIAL.NEB. NEB SCH (15:00)
[2023-08-22 15:02] LABS: ALBUMIN 1.6 g/dl (3.4-5.0); CALCIUM 9.2 mg/dL (8.5-10.1); POTASSIUM 4.9 mmol/L (3.5-5.1)
[2023-08-22 15:03] LABS: BLOOD UREA NITROGEN 30.6 mg/dL (7-18)
[2023-08-22 15:06] LABS: CREATININE 0.4 mg/dL (0.55-1.3)
[2023-08-22 15:07] LABS: BILIRUBIN,TOTAL 0.2 mg/dL (0.2-1); TOT PROT 6.2 g/dl (6.4-8.2)
[2023-08-22 15:08] LABS: EPI CELLS >36 /uL (0-25.1); HYALINE CASTS 12 /uL (0-3.1); URINE APPEARANCE TURBID; URINE BACTERIA 54 /uL (0-1359); URINE BILIRUBIN NEGATIVE (NEGATIVE); URINE COLOR DK YELLOW; URINE GLUCOSE (UA) NEGATIVE (NEGATIVE); URINE KETONE NEGATIVE (NEGATIVE); URINE LEUK ESTERASE 1+ (NEGATIVE); URINE NITRITE NEGATIVE (NEGATIVE); URINE PROTEIN 2+ (NEGATIVE); URINE RBC 5905 /uL (0-23.9); URINE WBC 224 /uL (0-25.8)
[2023-08-22 15:49] LABS: ANISOCYTOSIS 0; MACROCYTOSIS 0
[2023-08-22] MEDS ORDERED: DEXAMETHASONE SOD PHOSPHATE 10 MG/1 ML VIAL ONE (16:13)
[2023-08-22] MEDS ORDERED: ALBUTEROL SO4 2.5/IPRATROPIUM 0.5 INH SOL 3 ML VIAL.NEB. NEB ONE (16:13)
[2023-08-22] MEDS: DEXAMETHASONE SOD PHOSPHATE 10 MG/1 ML VIAL IVPUSH ONE (16:27)
[2023-08-22] MEDS ORDERED: PIPERACILLIN/TAZOB 4.5 GM 4.5 GM/100 ML BAG IVPB ONE (17:23)
[2023-08-22] MEDS: SODIUM CHLORIDE 0.9% 500 ML INFUS.BAG IV ONE (17:30)
[2023-08-22] MEDS: PIPERACILLIN/TAZOB 4.5 GM 4.5 GM in DEXTROSE 5%-WATER 100 ML IVPB ONE (17:30)
[2023-08-22] MEDS ORDERED: VANCOMYCIN 1 GRAM (PRE-DOCKED) 1,000 MG/250 ML BAG IVPB ONE (17:45)
[2023-08-22] MEDS: VANCOMYCIN 1,000 MG in DEXTROSE 5%-WATER - 250 ML IVPB ONE (17:50)
[2023-08-22 22:44] VITALS: BMI 13.8
[2023-08-22] MEDS: LACTATED RINGERS SOLUTION 1,000 ML/1,000 ML INFUS.BAG IV STA (23:00)
[2023-08-23] MEDS: LACTATED RINGERS SOLUTION 1,000 ML/1,000 ML INFUS.BAG IV SCH (05:15)
[2023-08-23] MEDS: LACTATED RINGERS SOLUTION 1,000 ML/1,000 ML INFUS.BAG IV ONE (05:36)
[2023-08-23] MEDS: methylPREDNISolone NA SUCC 40 MG/1 ML VIAL IVPUSH SCH ×2 (05:38→17:15)
[2023-08-23] MEDS: MEROPENEM 1 GM in DEXTROSE 5%-WATER 100 ML IVPB SCH ×2 (05:39→17:15)
[2023-08-23] MEDS: MOXIFLOXACIN HCL 0.5% OPHTHALMIC 3 ML BOTTLE OD SCH (06:27)
[2023-08-23 06:42] LABS: HEMATOCRIT 24.1 % (35.4-49); HEMOGLOBIN 7.5 GM/dL (11.7-16.9); MCH 29.3 pg (25.7-33.7); MCHC 31.2 g/dl (32.0-35.9); PLATELET COUNT 522 10^3/uL (134-434); RBC 2.56 M/mm3 (4.00-5.60); WHITE BLOOD COUNT 18.7 K/mm3 (4.0-10.0)
[2023-08-23 07:02] LABS: POTASSIUM 5.1 mmol/L (3.5-5.1)
[2023-08-23 07:11] LABS: CALCIUM 8.6 mg/dL (8.5-10.1)
[2023-08-23 07:13] LABS: BLOOD UREA NITROGEN 22.1 mg/dL (7-18); MAGNESIUM 1.8 mg/dL (1.8-2.4)
[2023-08-23 07:15] LABS: CREATININE 0.4 mg/dL (0.55-1.3); PHOSPHOROUS 4.6 mg/dL (2.5-4.9)
[2023-08-23 07:16] LABS: BILIRUBIN,TOTAL 0.4 mg/dL (0.2-1); TOT PROT 4.9 g/dl (6.4-8.2)
[2023-08-23 07:28] LABS: ALBUMIN 1.2 g/dl (3.4-5.0)
[2023-08-23] MEDS: ALBUTEROL SO4 2.5/IPRATROPIUM 0.5 INH SOL 3 ML VIAL.NEB. NEB SCH (08:10)
[2023-08-23] MEDS ORDERED: AMOX TR/POTASSIUM CLAVULANATE 600 MG/5 ML GT SCH (10:00)
[2023-08-23] MEDS: ENOXAPARIN NA (PORCINE) 40 MG/0.4 ML DISP.SYRIN SQ SCH (10:17)
[2023-08-23] MEDS: ACETAMINOPHEN 650 MG/20.3 ML ORAL SOLUTION (CUPS) GT PRN (10:37)
[2023-08-23] MEDS: SODIUM HYPOCHLORITE 0.5% 473 ML- BULK BOTTLE TP SCH (11:44)
[2023-08-23] MEDS ORDERED: POLYETHYLENE GLYCOL (HEALTHYLAX) 3350 17 GM PACKET GT PRN (15:10)
[2023-08-23] MEDS: QUEtiapine FUMARATE 25 MG TABLET GT SCH (21:33)
[2023-08-23] MEDS: MIRTAZAPINE 15 MG TABLET (FP) GT SCH (21:33)
[2023-08-23] MEDS: METOPROLOL TARTRATE 25 MG TABLET (FP) GT SCH (21:33)
[2023-08-24] MEDS ORDERED: MEROPENEM 1 GM in DEXTROSE 5%-WATER 100 ML IVPB SCH (02:00)
[2023-08-24 07:10] LABS: HEMATOCRIT 27.3 % (35.4-49); HEMOGLOBIN 8.5 GM/dL (11.7-16.9); MCH 28.7 pg (25.7-33.7); MEAN CELL VOLUME 92.5 fl (80-96); MEAN PLT VOLUME 8.6 fl (7.5-11.1); PLATELET COUNT 662 10^3/uL (134-434); RBC 2.95 M/mm3 (4.00-5.60); RDW 17.8 % (11.9-15.9); WHITE BLOOD COUNT 15.7 K/mm3 (4.0-10.0)
[2023-08-24 07:30] LABS: ALBUMIN 1.5 g/dl (3.4-5.0); CALCIUM 9.5 mg/dL (8.5-10.1); MAGNESIUM 2.2 mg/dL (1.8-2.4)
[2023-08-24 07:31] LABS: BLOOD UREA NITROGEN 21.4 mg/dL (7-18)
[2023-08-24 07:33] LABS: CREATININE 0.5 mg/dL (0.55-1.3); PHOSPHOROUS 3.6 mg/dL (2.5-4.9)
[2023-08-24 07:35] LABS: BILIRUBIN,TOTAL 0.3 mg/dL (0.2-1); TOT PROT 5.7 g/dl (6.4-8.2)
[2023-08-24 07:43] LABS: POTASSIUM 4.4 mmol/L (3.5-5.1)
[2023-08-24] MEDS: SODIUM HYPOCHLORITE 0.25%- 473 ML BULK BOTTLE TP SCH (09:13)
[2023-08-24 10:18] LABS: ANISOCYTOSIS 0; MACROCYTOSIS 0
[2023-08-25 06:41] LABS: HEMATOCRIT 24.1 % (35.4-49); HEMOGLOBIN 7.9 GM/dL (11.7-16.9); MCH 29.8 pg (25.7-33.7); MCHC 32.8 g/dl (32.0-35.9); MEAN PLT VOLUME 8.1 fl (7.5-11.1); PLATELET COUNT 687 10^3/uL (134-434); RBC 2.65 M/mm3 (4.00-5.60); RDW 17.8 % (11.9-15.9); WHITE BLOOD COUNT 14.4 K/mm3 (4.0-10.0)
[2023-08-25 06:57] LABS: POTASSIUM 4.3 mmol/L (3.5-5.1)
[2023-08-25 07:02] LABS: ALBUMIN 1.5 g/dl (3.4-5.0); CALCIUM 8.9 mg/dL (8.5-10.1)
[2023-08-25 07:03] LABS: BLOOD UREA NITROGEN 23.5 mg/dL (7-18); MAGNESIUM 2.1 mg/dL (1.8-2.4)
[2023-08-25 07:05] LABS: CREATININE 0.4 mg/dL (0.55-1.3)
[2023-08-25 07:06] LABS: PHOSPHOROUS 2.3 mg/dL (2.5-4.9)
[2023-08-25 07:07] LABS: BILIRUBIN,TOTAL 0.3 mg/dL (0.2-1); TOT PROT 5.5 g/dl (6.4-8.2)
[2023-08-25 09:41] LABS: ANISOCYTOSIS 0; MACROCYTOSIS 0
[2023-08-26 07:00] LABS: BASO % 0.2 % (0-2.0); EOS % 0.4 % (0-4.5); HEMATOCRIT 26.8 % (35.4-49); HEMOGLOBIN 8.5 GM/dL (11.7-16.9); LYMPH % 10.2 % (8-40); MCH 28.8 pg (25.7-33.7); MCHC 31.8 g/dl (32.0-35.9); MEAN CELL VOLUME 90.7 fl (80-96); MONO % 5.3 % (3.8-10.2); NEUT % 83.9 % (42.8-82.8); PLATELET COUNT 797 10^3/uL (134-434); RBC 2.96 M/mm3 (4.00-5.60); RDW 17.5 % (11.9-15.9); WHITE BLOOD COUNT 18.6 K/mm3 (4.0-10.0)
[2023-08-26 07:06] LABS: POTASSIUM 4.3 mmol/L (3.5-5.1)
[2023-08-26 07:19] LABS: ALBUMIN 1.7 g/dl (3.4-5.0); BLOOD UREA NITROGEN 18.1 mg/dL (7-18); CALCIUM 8.8 mg/dL (8.5-10.1)
[2023-08-26 07:22] LABS: CREATININE 0.3 mg/dL (0.55-1.3); PHOSPHOROUS 1.5 mg/dL (2.5-4.9)
[2023-08-26 07:23] LABS: BILIRUBIN,TOTAL 0.3 mg/dL (0.2-1); TOT PROT 5.8 g/dl (6.4-8.2)
[2023-08-26] MEDS: NAPH,MB-DB/K PH,MBDB POWDER PACKET GT SCH (08:27)
[2023-08-26] MEDS: methylPREDNISolone NA SUCC 40 MG/1 ML VIAL IVPUSH SCH (09:11)
[2023-08-26] MEDS: GENTAMICIN IVPB SCH (17:35)
[2023-08-26] MEDS: DEXTROSE 5% IVPB SCH (17:35)
[2023-08-26] MEDS: WATER IVPB SCH (17:35)
[2023-08-27 06:44] LABS: HEMATOCRIT 27.1 % (35.4-49); HEMOGLOBIN 8.8 GM/dL (11.7-16.9); MCH 29.3 pg (25.7-33.7); MCHC 32.4 g/dl (32.0-35.9); MEAN CELL VOLUME 90.5 fl (80-96); MEAN PLT VOLUME 7.8 fl (7.5-11.1); PLATELET COUNT 830 10^3/uL (134-434); RBC 2.99 M/mm3 (4.00-5.60); RDW 17.6 % (11.9-15.9); WHITE BLOOD COUNT 19.2 K/mm3 (4.0-10.0)
[2023-08-27 07:22] LABS: POTASSIUM 4.4 mmol/L (3.5-5.1)
[2023-08-27 07:31] LABS: BLOOD UREA NITROGEN 20.6 mg/dL (7-18); CALCIUM 8.9 mg/dL (8.5-10.1); MAGNESIUM 2.2 mg/dL (1.8-2.4)
[2023-08-27 07:33] LABS: ALBUMIN 1.8 g/dl (3.4-5.0)
[2023-08-27 07:35] LABS: CREATININE 0.3 mg/dL (0.55-1.3); PHOSPHOROUS 2.1 mg/dL (2.5-4.9)
[2023-08-27 07:36] LABS: BILIRUBIN,TOTAL 0.4 mg/dL (0.2-1)
[2023-08-27 09:06] LABS: ANISOCYTOSIS 0; HELMET CELLS 0; HOWELL-JOLLY BODIES 0; MACROCYTOSIS 0; OVALOCYTE 0; ROULEAU 0; SICKELED CELLS 0; TARGET CELLS 0; TEAR DROP CELLS 0; TOXIC GRANULATION 0
[2023-08-27] MEDS: predniSONE 20 MG TABLET (UD) GT SCH (10:45)
[2023-08-27] MEDS ORDERED: ZINC OXIDE/PANTHENOL/VITAMIN E 56 GM TUBE TP PRN (20:25)
[2023-08-27] MEDS: ALBUTEROL SO4 2.5/IPRATROPIUM 0.5 INH SOL 3 ML VIAL.NEB. NEB PRN (20:33)
[2023-08-28 07:04] LABS: POTASSIUM 4.2 mmol/L (3.5-5.1)
[2023-08-28 07:06] LABS: CALCIUM 8.8 mg/dL (8.5-10.1)
[2023-08-28 07:07] LABS: BLOOD UREA NITROGEN 28.7 mg/dL (7-18); MAGNESIUM 2.2 mg/dL (1.8-2.4)
[2023-08-28 07:10] LABS: CREATININE 0.4 mg/dL (0.55-1.3); PHOSPHOROUS 3.5 mg/dL (2.5-4.9)
[2023-08-28 07:11] LABS: BILIRUBIN,TOTAL 0.5 mg/dL (0.2-1)
[2023-08-28 07:19] LABS: HEMOGLOBIN 9.3 GM/dL (11.7-16.9); MCH 29.1 pg (25.7-33.7); MEAN CELL VOLUME 90.9 fl (80-96); MEAN PLT VOLUME 8.1 fl (7.5-11.1); PLATELET COUNT 838 10^3/uL (134-434); RBC 3.18 M/mm3 (4.00-5.60); RDW 17.7 % (11.9-15.9); WHITE BLOOD COUNT 19.3 K/mm3 (4.0-10.0)
[2023-08-29 07:18] LABS: HEMATOCRIT 29.1 % (35.4-49); HEMOGLOBIN 9.3 GM/dL (11.7-16.9); MCHC 31.9 g/dl (32.0-35.9); MEAN PLT VOLUME 8.2 fl (7.5-11.1); PLATELET COUNT 857 10^3/uL (134-434); RBC 3.19 M/mm3 (4.00-5.60); RDW 18.2 % (11.9-15.9); WHITE BLOOD COUNT 20.4 K/mm3 (4.0-10.0)
[2023-08-29 07:30] LABS: POTASSIUM 4.5 mmol/L (3.5-5.1)
[2023-08-29 07:38] LABS: ALBUMIN 2.1 g/dl (3.4-5.0); BLOOD UREA NITROGEN 32.4 mg/dL (7-18); CALCIUM 9.1 mg/dL (8.5-10.1); CREATININE 0.4 mg/dL (0.55-1.3)
[2023-08-29 07:39] LABS: MAGNESIUM 2.5 mg/dL (1.8-2.4)
[2023-08-29 07:40] LABS: BILIRUBIN,TOTAL 0.7 mg/dL (0.2-1); TOT PROT 6.3 g/dl (6.4-8.2)
[2023-08-29 07:41] LABS: BILIRUBIN,DIRECT 0.2 mg/dL (0.0-0.2); PHOSPHOROUS 3.5 mg/dL (2.5-4.9)
[2023-08-29 08:33] LABS: ANISOCYTOSIS 2+; MACROCYTOSIS 0
[2023-08-29] MEDS: predniSONE 10 MG TABLET (UD) PO SCH (09:02)
[2023-08-29] MEDS: SODIUM CHLORIDE 500 ML IV STA (13:30)
[2023-08-29] MEDS: AMINO ACIDS/PROTEIN HYDROLYS 30 ML LIQUID.PKT GT SCH (16:34)
[2023-08-29] MEDS: ASCORBIC ACID 500 MG TABLET (FP) GT SCH (21:08)
[2023-08-30 07:20] LABS: HEMOGLOBIN 8.7 GM/dL (11.7-16.9); MCH 28.9 pg (25.7-33.7); MCHC 32.1 g/dl (32.0-35.9); MEAN CELL VOLUME 90.3 fl (80-96); MEAN PLT VOLUME 8.4 fl (7.5-11.1); PLATELET COUNT 815 10^3/uL (134-434); RBC 2.99 M/mm3 (4.00-5.60); RDW 18.2 % (11.9-15.9)
[2023-08-30 07:32] LABS: POTASSIUM 4.4 mmol/L (3.5-5.1)
[2023-08-30 07:35] LABS: CALCIUM 8.8 mg/dL (8.5-10.1)
[2023-08-30 07:36] LABS: BLOOD UREA NITROGEN 38.2 mg/dL (7-18); MAGNESIUM 2.4 mg/dL (1.8-2.4)
[2023-08-30 07:39] LABS: CREATININE 0.5 mg/dL (0.55-1.3); PHOSPHOROUS 2.6 mg/dL (2.5-4.9)
[2023-08-30 07:40] LABS: BILIRUBIN,TOTAL 0.5 mg/dL (0.2-1); TOT PROT 6.1 g/dl (6.4-8.2)
[2023-08-30 08:47] LABS: ANISOCYTOSIS 2+; MACROCYTOSIS 0
[2023-08-31 07:32] LABS: HEMATOCRIT 27.2 % (35.4-49); HEMOGLOBIN 8.7 GM/dL (11.7-16.9); MCH 29.6 pg (25.7-33.7); MCHC 32.1 g/dl (32.0-35.9); MEAN CELL VOLUME 92.4 fl (80-96); MEAN PLT VOLUME 8.1 fl (7.5-11.1); PLATELET COUNT 710 10^3/uL (134-434); RBC 2.95 M/mm3 (4.00-5.60); RDW 18.7 % (11.9-15.9); WHITE BLOOD COUNT 17.6 K/mm3 (4.0-10.0)
[2023-08-31 07:38] LABS: POTASSIUM 4.5 mmol/L (3.5-5.1)
[2023-08-31 07:41] LABS: ALBUMIN 2.1 g/dl (3.4-5.0); BLOOD UREA NITROGEN 33.1 mg/dL (7-18); CALCIUM 9.3 mg/dL (8.5-10.1); MAGNESIUM 2.2 mg/dL (1.8-2.4)
[2023-08-31 07:44] LABS: CREATININE 0.5 mg/dL (0.55-1.3); PHOSPHOROUS 3.2 mg/dL (2.5-4.9)
[2023-08-31 07:46] LABS: BILIRUBIN,TOTAL 0.4 mg/dL (0.2-1); TOT PROT 6.2 g/dl (6.4-8.2)
[2023-08-31] MEDS: predniSONE 20 MG TABLET (UD) PO SCH (09:10)
[2023-08-31 09:22] LABS: ANISOCYTOSIS 0; MACROCYTOSIS 0
[2023-08-31] MEDS: METOPROLOL TARTRATE 25 MG TABLET (FP) GT ONE (14:45)
[2023-08-31 17:39] VITALS: BP 99/70; PULSE 95; RESP 23; TEMP 98.1
[2023-09-02] MEDS ORDERED: predniSONE 10 MG TABLET (UD) PO SCH (10:00)
== END 2023-08-31 18:30 | DRG 870 ==
LOC: JER 12:41 → JERBED 20:04 → J2W 21:33
PROVIDERS: ADMIT Internal Medicine; ATTEND Internal Medicine
PROC: 5A1955Z Respiratory Ventilation, Greater than 96 Consecutive Hours (ICD-10-PCS; principal; 2023-08-22)
DX: A41.9 Sepsis, unspecified organism (principal); L89.103 Pressure ulcer of unspecified part of back, stage 3; E43 Unspecified severe protein-calorie malnutrition; J96.21 Acute and chronic respiratory failure with hypoxia; J15.1 Pneumonia due to Pseudomonas; Z99.11 Dependence on respirator [ventilator] status; J44.1 Chronic obstructive pulmonary disease with (acute) exacerbation; N39.0 Urinary tract infection, site not specified; R64 Cachexia; J44.0 Chronic obstructive pulmonary disease with (acute) lower respiratory infection; Z93.0 Tracheostomy status; K21.9 Gastro-esophageal reflux disease without esophagitis; Z93.1 Gastrostomy status; L89.150 Pressure ulcer of sacral region, unstageable; L89.210 Pressure ulcer of right hip, unstageable; R65.20 Severe sepsis without septic shock; D64.9 Anemia, unspecified
CPT/HCPCS: 0241U-QW; 36415; 71045-TC-FY; 71275-TC; 74174-TC; 80048; 80053; 80076; 80170; 81003; 82550; 82553; 82803; 82962; 83605; 83735; 83880; 84100; 84484; 85025; 85027; 85610; 85651; 85730; 86140; 86480; 86850; 86900; 86901; 87040; 87070; 87086; 87186; 87205; 93005; 93010; 94002; 94640; 99285-25; J1100; Q9967